=== PATIENT | male | born 1975 | race African-American/Black ===

== ENCOUNTER 2023-01-02 10:17 | Emergency (ER) | payer OTHER, SELFPAY ==
[2023-01-02 10:35] VITALS: BP 140/84; PULSE 74; RESP 18; TEMP 36.5; O2SAT 100
[2023-01-02 11:00] LABS: Basophils Absolute Auto 0.1 K/mm3 (0.0-0.1); Basophils Percent Auto 0.9 % (0.2-1.2); Eosinophils Absolute Auto 0.3 K/mm3 (0-0.3); Eosinophils Percent Auto 4.9 % (0-4.4); Hematocrit 42.6 % (42.0-52.0); Hemoglobin 14.2 g/dL (14.0-18.0); Immature Granulocyte Absolute 0.01 K/mm3 (0.00-0.031); Immature Granulocyte Percent A 0.2 % (0-0.5); Lymphocytes Absolute Auto 2.49 K/mm3 (0.9-3.2); Lymphocytes Percent Auto 47.2 % (18.3-44.2); Mean Corpuscular HGB Conc 33.3 g/dl (32-36); Mean Corpuscular Hemoglobin 30.1 pg (26-34); Mean Corpuscular Volume 90.3 fl (80-100); Mean Platelet Volume 10.4 fl (7.4-10.4); Monocytes Absolute Auto 0.4 K/mm3 (0.1-0.6); Neutrophils Absolute Auto 2.1 K/mm3 (1.3-6.7); Neutrophils Percent Auto 39.8 % (45.5-73.1); Platelet Count Result 224 k/mm3 (150-375); Red Blood Count 4.72 M/mm3 (4.6-6.20); Red Cell Distribution Width 13.4 % (11.5-14.5); White Blood Count 5.3 K/mm3 (4.5-10.0)
--- NOTE | 2023-01-02 11:07 | PC.NURSE ---
pt has specimen cup. states is still unable to provide specimen
[2023-01-02 11:10] LABS: Alanine Aminotransferase 25 U/L (6-50); Albumin Level 3.9 g/dL (3.5-5.1); Alkaline Phosphatase 75 U/L (38-126); Anion Gap 6 mmol/L (8-16); Aspartate Amino Transferase 36 U/L (17-59); Bilirubin,Total 0.7 mg/dL (0.2-1.3); Blood Urea Nitrogen 11 mg/dL (9-20); Calcium 8.7 mg/dL (8.4-10.2); Carbon Dioxide 24 mmol/L (22-30); Chloride 108 mmol/L (98-107); Estimated CRCL calculation 90 ml/min; Estimated Glomerular Filt Rate > 60; Glucose 94 mg/dL (65-110); Lipase 162 U/L (23-300); Sodium 138 mmol/L (137-145)
[2023-01-02 12:03] LABS: Appearance Urine Clear (Clear); Bilirubin Urine Negative (Negative); Blood Urine Negative (Negative); Color Urine Yellow (Yellow); Glucose Urine UA Negative (Negative); Ketones Urine Negative (Negative); Leukocyte Esterase Ur Negative LEU/UL (Negative); Nitrate Urine Negative (Negative); Protein Urine Negative (Negative); Specific Grav Ur 1.026 (1.001-1.035); pH Urine 6.5 (5.0-9.0)
[2023-01-02 12:11] LABS: Add Urine Microscopic? NO
[2023-01-02] MEDS: ONDANSETRON HCL ODT 4 MG TABLET PO (13:04)
[2023-01-02] MEDS: MAG HYDROX/AL HYDROX/SIMETH 30 ML UDC PO (13:04)
[2023-01-02] MEDS: FAMOTIDINE 20 MG TABLET PO (13:04)
--- NOTE | 2023-01-02 18:12 | ED.ABDPAIN ---
HPI - Abdominal Pain General Chief Complaint: Abdominal Pain Stated Complaint: abd pain, nausea Time Seen by Provider: 01/02/23 11:14 History of Present Illness HPI narrative: Patient presenting with 1 day of nausea and vomiting and abdominal pain, started at work after he ate pizza, chicken wings. No diarrhea, fevers or chills, or cough Related Data Allergies Allergy/AdvReac Type Severity Reaction Status Date / Time No Known Allergies Allergy Verified 01/02/23 11:01 Review of Systems Review of Systems: All systems reviewed & are unremarkable except as noted in HPI and below Exam Narrative: EXAMINATION OF ORGAN SYSTEMS/BODY AREAS: Constitutional: Vital signs per nursing GENERAL:[No acute distress, non-toxic appearing.] HEAD: Normal with no signs of head trauma. EYES: EOMI, conjunctiva normal ENT: Hearing grossly intact LUNGS: Nonlabored breathing. HEART: [Regular rate and rhythm] ABD: [Soft], [nontender to palpation] EXT: Normal range of motion SKIN: [No rashes or lesions.] NEURO: [Alert and oriented x 3. No gross focal sensory or strength deficits.] PSYCH: Normal affect Course Vital Signs Vital signs: Vital Signs Temperature 97.7 F 01/02/23 10:35 Pulse Rate 74 01/02/23 10:35 Respiratory Rate 18 01/02/23 10:35 Blood Pressure 140/84 01/02/23 10:35 Pulse Oximetry 100 01/02/23 10:35 Oxygen Delivery Room Air 01/02/23 10:35 Temperature 97.7 F 01/02/23 10:35 Pulse Rate 74 01/02/23 10:35 Respiratory Rate 18 01/02/23 10:35 Blood Pressure 140/84 01/02/23 10:35 Pulse Oximetry 100 01/02/23 10:35 Oxygen Delivery Room Air 01/02/23 10:35 MDM - Abdominal Pain MDM Narrative Medical decision making narrative: Electronic medical record was reviewed. Patient presented to the ED with complaint of [abdominal pain and vomiting]. Vitals [were within acceptable limits]. Physical exam revealed soft abdomen without any tenderness. Based on the patient's history and physical exam, my differential includes but is not limited to [gastritis, gastroenteritis, doubt cholecystitis, pancreatitis, appendicitis without focal tenderness]. [Patient was given zofran, Protonix]. CBC, BMP, lipase, LFTs, bilirubin and alk phos were obtained. Labs were pertinent for unremarkable labs including a white count or LFTs. On reevaluation, the patient states that they are feeling better. There were no witnessed episodes of vomiting in the emergency department. They are not complaining of any new abdominal pain. Repeat examination did not show any significant guarding or rebound. No new tenderness. At this time I do not feel there is any further emergent treatment to be provided. The patient was given strict return precautions, if they are to develop any worsening abdominal pain, vomiting, or blood in the vomit they are to return to the emergency department immediately. Patient verbally acknowledges understanding these directions. [The patient was informed of the above diagnostic test findings.] No further workup is necessary at this time. They will be discharged home [with prescriptions for Zofran, Pepcid]. They were advised to follow-up with [their PCP] in 2 days. The patient feels that this is appropriate medical decision making and verbalizes an understanding of the discharge instructions. Lab Data 01/02/23 10:51 01/02/23 10:51 Labs: Lab Results 01/02/23 01/02/23 Range/Units 10:51 11:55 WBC 5.3 (4.5-10.0) K/mm3 RBC 4.72 (4.6-6.20) M/mm3 Hgb 14.2 (14.0-18.0) g/dL Hct 42.6 (42.0-52.0) % MCV 90.3 (80-100) fl MCH 30.1 (26-34) pg MCHC 33.3 (32-36) g/dl RDW 13.4 (11.5-14.5) % Plt Count 224 (150-375) k/mm3 MPV 10.4 (7.4-10.4) fl Immature Gran % (Auto) 0.2 (0-0.5) % Neut % (Auto) 39.8 L (45.5-73.1) % Lymph % (Auto) 47.2 H (18.3-44.2) % Coffee % (Auto) 7.0 (2.6-8.5) % Eos % (Auto) 4.9 H (0-4.4) % Baso % (Auto) 0.9
== END 2023-01-02 13:00 | disposition home or self-care (01) ==
PROVIDERS: Emergency Provider Emergency Medicine
DX: R10.9 Unspecified abdominal pain (principal)
CPT/HCPCS: 36415; 80053; 81003; 83690; 85025; 99283; A9270

== ENCOUNTER 2023-03-27 16:44 | Emergency (ER) | payer OTHER, SELFPAY ==
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
[2023-03-27 16:59] VITALS: BP 131/85; PULSE 88; RESP 16; TEMP 36.7; O2SAT 100
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
== END 2023-03-27 18:45 | disposition home or self-care (01) ==
PROVIDERS: Emergency Provider Nurse Practitioner Family
DX: S39.012A Strain of muscle, fascia and tendon of lower back, initial encounter (principal); S16.1XXA Strain of muscle, fascia and tendon at neck level, initial encounter; V49.40XA Driver injured in collision with unspecified motor vehicles in traffic accident, initial encounter; J45.909 Unspecified asthma, uncomplicated
CPT/HCPCS: 72050; 72100; 99213; G0463

== ENCOUNTER 2024-12-22 17:28 | Emergency (ER) | payer OTHER, SELFPAY ==
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
[2024-12-22 17:37] VITALS: BP 144/88; PULSE 74; RESP 16; TEMP 36.8; O2SAT 100
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
== END 2024-12-22 18:44 | disposition home or self-care (01) ==
PROVIDERS: Emergency Provider Nurse Practitioner Family
DX: S16.1XXA Strain of muscle, fascia and tendon at neck level, initial encounter (principal); S39.012A Strain of muscle, fascia and tendon of lower back, initial encounter; V43.53XA Car driver injured in collision with pick-up truck in traffic accident, initial encounter; J45.909 Unspecified asthma, uncomplicated
CPT/HCPCS: 72040; 72100; 99213; G0463